=== PATIENT | male | born 1935 | race American Indian/Alaskan Native ===

== ENCOUNTER → 2016-08-19 | Emergency (ER) | payer OTHER ==
[~2016-08-19] VITALS: Ht 175.3 cm; Wt 80.6 kg
[~2016-08-19] MED LIST: CIPRO500 MG PO
[2016-08-19 13:52] LABS: EOSINOPHIL (%) 4.2 % (0-5); EOSINOPHIL COUNT 0.3 K/uL (0-0.3); IMMATURE GRANULOCYTE (%) 0.7 % (0.0-0.7); IMMATURE GRANULOCYTE COUNT 0.1 K/uL; INSTRUMENT ABS NEUTROPHIL CT 3.4 K/uL; LYMPHOCYTE COUNT 2.6 K/uL (1.0-2.8); MCHC 32.4 G/DL (30.0-36.0); MCV 86.6 FL (86-99); MEAN PLAT.VOLUME 9.3 uM^3 (9.0-12.4); MONOCYTE (%) 10.4 % (3-12); MONOCYTE COUNT 0.7 K/uL (0-0.8); NEUTROPHIL COUNT 3.4 K/uL (1.8-6.4); PLATELET COUNT 249 K/uL (156-360); RBC DIS.WIDTH-CV 13.7 % (11.8-14.6); RBC DIS.WIDTH-SD 43.4 % (39-53); RED BLOOD COUNT 4.39 M/uL (4.00-5.50); WHITE BLOOD COUNT 7.1 K/uL (4.1-10.2)
[2016-08-19 14:01] LABS: CHLORIDE 106 mEq/L (99-109); POTASSIUM 3.6 mEq/L (3.7-5.4); SODIUM 140 mEq/L (136-147)
[2016-08-19 14:03] LABS: GLUCOSE 90 mg/dL (70-99)
[2016-08-19 14:04] LABS: ANION GAP 9 MEQ/L (2-14)
[2016-08-19 14:07] LABS: GFR ESTIMATE (CALCULATED) > 59 mL/min/; UREA NITROGEN (BUN) 11 mg/dL (9-23)
[2016-08-19 15:51] VITALS: BP 175/82
== END | disposition home or self-care (01) ==
LOC: EME 12:37
DX: N45.1 Epididymitis (principal); I10 Essential (primary) hypertension; Z87.891 Personal history of nicotine dependence
CPT/HCPCS: 76870; 80048; 81003; 85025; 99281; 99283

== ENCOUNTER 2016-12-09 19:55 | Observation (INO) | payer OTHER ==
[~2016-12-09] VITALS: Ht 175.3 cm; Wt 81.1 kg
[2016-12-09 20:38] LABS: EOSINOPHIL (%) 5.1 % (0-5); EOSINOPHIL COUNT 0.3 K/uL (0-0.3); HEMATOCRIT 36.6 % (38.0-50.0); IMMATURE GRANULOCYTE (%) 0.3 % (0.0-0.7); INSTRUMENT ABS NEUTROPHIL CT 3.1 K/uL; LYMPHOCYTE COUNT 2.3 K/uL (1.0-2.8); MCH 28.2 PG (29.0-34.0); MCHC 32.8 G/DL (30.0-36.0); MCV 86.1 FL (86-99); MEAN PLAT.VOLUME 9.2 uM^3 (9.0-12.4); MONOCYTE (%) 7.5 % (3-12); MONOCYTE COUNT 0.5 K/uL (0-0.8); NEUTROPHIL (%) 49.9 % (45-76); NEUTROPHIL COUNT 3.1 K/uL (1.8-6.4); PLATELET COUNT 199 K/uL (156-360); RBC DIS.WIDTH-CV 15.7 % (11.8-14.6); RBC DIS.WIDTH-SD 49.5 % (39-53); RED BLOOD COUNT 4.25 M/uL (4.00-5.50); WHITE BLOOD COUNT 6.3 K/uL (4.1-10.2)
[2016-12-09 20:44] LABS: INTER. NORMALIZED RATIO 0.9; PROTHROMBIN TIME 9.9 SEC (10.2-12.9)
[2016-12-09 20:46] LABS: PTT 27.8 SEC (25-37)
[2016-12-09 20:49] LABS: CHLORIDE 103 mEq/L (99-109); POTASSIUM 4.7 mEq/L (3.7-5.4); SODIUM 138 mEq/L (136-147)
[2016-12-09 20:51] LABS: GLUCOSE 109 mg/dL (70-99)
[2016-12-09 20:52] LABS: ANION GAP 7 MEQ/L (2-14)
[2016-12-09 20:55] LABS: GFR ESTIMATE (CALCULATED) 52 mL/min/; UREA NITROGEN (BUN) 15 mg/dL (9-23)
[2016-12-09 23:15] LABS: TROP-I INTERPRETATION NEGATIVE; TROPONIN-I < 0.01 ng/mL (0.0-0.30)
[2016-12-10 01:15] VITALS: BP 173/91
[2016-12-10 02:56] VITALS: BP 192/92; BP 200/100
[2016-12-10 05:33] VITALS: BP 159/81
[2016-12-10 06:27] LABS: HDL CHOLESTEROL 60 MG/DL (Desirable>=40); LDL CHOLESTEROL 110 mg/dL (Desirable<100); NON-HDL CHOLESTEROL 124 mg/dL (Desirable<160); TOTAL CHOLESTEROL 184 mg/dL (Desirable<200); TRIGLYCERIDES 70 MG/DL (Normal: <150)
[2016-12-10 06:41] LABS: TROP-I INTERPRETATION NEGATIVE; TROPONIN-I < 0.01 ng/mL (0.0-0.30)
[2016-12-10 06:47] LABS: Estimated Average Glucose 114 mg/dL (70-123); HEMOGLOBIN A1c (GLYCOHEMOGLOB) 5.6 % HGB (Below 5.7)
[2016-12-10 08:05] VITALS: BP 186/75
[2016-12-10] MEDS ORDERED: LO-DOSE ASPIRIN81 M2 PO (10:58)
[2016-12-10] MEDS ORDERED: AMLODIPINE BESYL5 MG PO (10:58)
[2016-12-10] MEDS ORDERED: PRAVASTATIN SOD40 MG PO (10:58)
[2016-12-10 12:14] VITALS: BP 149/74
[2016-12-10 12:21] LABS: TROP-I INTERPRETATION NEGATIVE; TROPONIN-I < 0.01 ng/mL (0.0-0.30)
== END 2016-12-10 14:36 | disposition home or self-care (01) ==
LOC: EME → EDBD 19:55 → EDOF 23:43 → ENRESERV 23:44 → 5WEST 12-10 00:43
PROVIDERS: Emergency Medicine; Hospitalist
DX: I63.8 Other cerebral infarction (principal); I10 Essential (primary) hypertension; Z79.82 Long term (current) use of aspirin
CPT/HCPCS: 70450; 70551; 80048; 80061; 82607; 82746; 83036; 84443; 84484; 85025; 85610; 85730; 93005; 93880; 99281; 99285; G0378; J1644; J7040

== ENCOUNTER 2017-05-04 21:05 | Observation (INO) | payer OTHER ==
[~2017-05-04] VITALS: Ht 176.7 cm; Wt 83.5 kg
[~2017-05-04 21:05] MED LIST changes: +AMLODIPINE BESYL5 MG PO; +LO-DOSE ASPIRIN81 M2 PO; +PRAVASTATIN SOD40 MG PO
[2017-05-04 21:37] LABS: BASOPHIL (%) 0.3 % (0-1); EOSINOPHIL (%) 1.3 % (0-5); EOSINOPHIL COUNT 0.1 K/uL (0-0.3); HEMATOCRIT 37.7 % (38.0-50.0); HEMOGLOBIN 12.4 G/DL (12.5-16.6); IMMATURE GRANULOCYTE (%) 0.7 % (0.0-0.7); LYMPHOCYTE (%) 18.8 % (15-42); LYMPHOCYTE COUNT 1.3 K/uL (1.0-2.8); MCH 28.8 PG (29.0-34.0); MCHC 32.9 G/DL (30.0-36.0); MCV 87.7 FL (86-99); MONOCYTE (%) 5.9 % (3-12); MONOCYTE COUNT 0.4 K/uL (0-0.8); PLATELET COUNT 211 K/uL (156-360); RBC DIS.WIDTH-CV 14.5 % (11.8-14.6); RBC DIS.WIDTH-SD 46.6 % (39-53); WHITE BLOOD COUNT 6.9 K/uL (4.1-10.2)
[2017-05-04 21:47] LABS: CHLORIDE 107 mEq/L (99-109); POTASSIUM 4.1 mEq/L (3.7-5.4); SODIUM 140 mEq/L (136-147)
[2017-05-04 21:48] LABS: MAGNESIUM 2.3 mg/dL (1.3-2.7)
[2017-05-04 21:50] LABS: GLUCOSE 240 mg/dL (70-99); TOTAL PROTEIN 6.9 g/dL (6.4-8.3)
[2017-05-04 21:52] LABS: TOTAL BILIRUBIN 0.2 mg/dL (0.0-1.0)
[2017-05-04 21:53] LABS: ALKALINE PHOSPHATASE 67 IU/L (3-129)
[2017-05-04 21:54] LABS: CREATININE 1.5 mg/dL (0.6-1.3); GFR ESTIMATE (CALCULATED) 48 mL/min/ (58.99-99999)
[2017-05-04 21:55] LABS: AST (GOT) 19 IU/L (2-34); UREA NITROGEN (BUN) 18 mg/dL (9-23)
[2017-05-04 21:56] LABS: ALT (GPT) 14 IU/L (3-49)
[2017-05-04 21:57] LABS: CREATINE KINASE 130 IU/L (1-294); TOTAL CK 130 IU/L (1-294)
[2017-05-04 22:00] LABS: TROP-I INTERPRETATION NEGATIVE; TROPONIN-I 0.03 ng/mL (0.0-0.30)
[2017-05-04 22:02] LABS: CK-MB 1.5 ng/mL (0.0-4.9); CKMB RELATIVE INDEX 1.2 (0.0-3.9)
[2017-05-04 23:38] LABS: APPEARANCE SL.HAZY ((CLEAR)); BILIRUBIN NEGATIVE; BLOOD SMALL; COLOR YELLOW ((YELLOW)); GLUCOSE (STRIP) NEGATIVE; KETONES 5; LEUKOCYTES NEGATIVE; NITRITE NEGATIVE; PROTEIN (STRIP) 30; SPECIFIC GRAVITY 1.017 (1.000-1.030); UROBILINOGEN 0.2 MG/DL (0.2-1.0)
[2017-05-04 23:41] LABS: BACTERIA RARE /HPF; EPITHELIAL CELLS RARE /HPF; HYALINE CASTS TNTC /LPF; MUCUS 1+ /LPF; UCUL ADDED? NO; WHITE BLOOD CELLS 0-5 /HPF (0-5)
[2017-05-04] MEDS ORDERED: ADULT ASPIRIN R81 MG PO (23:48)
[2017-05-04] MEDS ORDERED: AMLODIPINE BESY10 MG PO (23:48)
[2017-05-04] MEDS ORDERED: DIOVAN160 MG PO (23:48)
[2017-05-04] MEDS ORDERED: PRAVACHOL40 MG PO (23:48)
[2017-05-04] MEDS ORDERED: CYANOCOBALAM1000 MCG PO (23:49)
[2017-05-04] MEDS ORDERED: CLARITIN,ALAVAR10 MG PO (23:49)
[2017-05-04] MEDS ORDERED: TOPROL XL100 MG PO (23:49)
[2017-05-05 08:57] LABS: TROP-I INTERPRETATION NEGATIVE; TROPONIN-I 0.01 ng/mL (0.0-0.30)
[2017-05-05 13:13] LABS: TROP-I INTERPRETATION NEGATIVE; TROPONIN-I < 0.01 ng/mL (0.0-0.30)
[2017-05-05 14:40] VITALS: BP 178/85
[2017-05-05 16:18] LABS: CHLORIDE 109 MEQ/L (99-109); POTASSIUM 3.9 MEQ/L (3.7-5.4); SODIUM 141 MEQ/L (136-147)
[2017-05-05 16:24] LABS: CREATININE 1.1 MG/DL (0.6-1.3); GFR ESTIMATE (CALCULATED) > 59 mL/min/ (58.99-99999); UREA NITROGEN (BUN) 15 mg/dL (9-23)
[2017-05-05 16:25] LABS: GLUCOSE 113 mg/dL (70-99)
[2017-05-05 21:27] VITALS: BP 177/84
[2017-05-05 23:33] VITALS: BP 169/75
[2017-05-06 02:22] VITALS: BP 151/80
[2017-05-06 03:34] VITALS: BP 157/77
[2017-05-06 06:45] LABS: BASOPHIL (%) 0.8 % (0-1); BASOPHIL COUNT 0.1 K/uL (0-0.1); EOSINOPHIL (%) 6.7 % (0-5); EOSINOPHIL COUNT 0.5 K/uL (0-0.3); HEMATOCRIT 38.4 % (38.0-50.0); HEMOGLOBIN 12.6 G/DL (12.5-16.6); IMMATURE GRANULOCYTE (%) 0.3 % (0.0-0.7); LYMPHOCYTE COUNT 2.7 K/uL (1.0-2.8); MCHC 32.8 G/DL (30.0-36.0); MCV 88.5 FL (86-99); MONOCYTE (%) 9.2 % (3-12); MONOCYTE COUNT 0.7 K/uL (0-0.8); NEUTROPHIL COUNT 3.7 K/uL (1.8-6.4); PLATELET COUNT 209 K/uL (156-360); RBC DIS.WIDTH-CV 14.6 % (11.8-14.6); RBC DIS.WIDTH-SD 46.5 % (39-53); RED BLOOD COUNT 4.34 M/uL (4.00-5.50); WHITE BLOOD COUNT 7.6 K/uL (4.1-10.2)
[2017-05-06 07:19] LABS: ALBUMIN 3.6 G/DL (3.2-4.8); ALKALINE PHOSPHATASE 45 IU/L (3-129); ALT (GPT) 10 IU/L (3-49); AST (GOT) 13 IU/L (2-34); CHLORIDE 107 MEQ/L (99-109); CREATININE 0.9 MG/DL (0.6-1.3); DIRECT BILIRUBIN 0.1 mg/dL (0.0-0.3); GFR ESTIMATE (CALCULATED) > 59 mL/min/ (58.99-99999); GLUCOSE 89 mg/dL (70-99); SODIUM 143 MEQ/L (136-147); TOTAL BILIRUBIN 0.5 MG/DL (0.0-1.0); TOTAL PROTEIN 6.1 G/DL (6.4-8.3); UREA NITROGEN (BUN) 13 mg/dL (9-23)
[2017-05-06 07:21] VITALS: BP 162/81
[2017-05-06 11:32] VITALS: BP 141/73
[2017-05-06] MEDS ORDERED: METOPROLOL SUCC50 MG PO (14:00)
[2017-05-06] MEDS ORDERED: APRESOLINE25 MG PO (14:00)
[2017-05-06] MEDS ORDERED: NIFEDIPINE ER90 MG PO (14:00)
== END 2017-05-06 15:47 | disposition home or self-care (01) ==
LOC: EME → EDBD 21:05 → EME 21:05 → EDOF 05-05 00:13 → ENRESERV 05-05 00:14 → 5WEST 05-05 14:26
PROVIDERS: Emergency Medicine; Hospitalist; Student in an Organized Health Care Education/Training Program
DX: R55 Syncope and collapse (principal); I35.0 Nonrheumatic aortic (valve) stenosis; I10 Essential (primary) hypertension; Z86.73 Personal history of transient ischemic attack (TIA), and cerebral infarction without residual deficits; R01.1 Cardiac murmur, unspecified; I27.20 Pulmonary hypertension, unspecified; Z87.891 Personal history of nicotine dependence
CPT/HCPCS: 70450; 70551; 71045; 80048; 80053; 80076; 81003; 82550; 82553; 83735; 84484; 85025; 93005; 93306; 93880; 99281; 99285; G0378; J1644; J7030